=== PATIENT | female | born 1985 | race Caucasian/White ===

== ENCOUNTER 2017-02-12 21:34 | Emergency (ER) | payer SELFPAY ==
[~2017-02-12 21:34] MED LIST: ACULAR10 ML OD; ALBUTEROL17 GM; CLEOCIN PO; CLEOCIN150 MG PO; DOXYCYCLINE PO; ERYTHROMYCIN250 MG PO; FLEXERIL10 MG PO; IBUPROFEN PO; KEFLEX500 M1 PO; MOTRIN400 M1 DOB; MOTRIN600 M1 PO; NO MEDICATIONS; PREDNISONE; PREDNISONE PO; PRENATAL1 TA1 PO; ROBITUSSIN A-C S5 ML; TYLENOL #3 PO; ULTRAM PO; VISTARIL50 MG PO; VOLTAREN50 MG PO; VOLTAREN75 MG PO; ZITHROMAX
== END 2017-02-12 21:35 | disposition left against medical advice (07) ==
LOC: SED 21:34
DX: Z53.21 Procedure and treatment not carried out due to patient leaving prior to being seen by health care provider (principal)